=== PATIENT | female | born 1960 | race Caucasian/White ===

== ENCOUNTER 2016-07-11 10:42 | Day surgery (SDC) | payer OTHER ==
[~2016-07-11] VITALS: Ht 165.1 cm; Wt 108.3 kg
[~2016-07-11 10:42] MED LIST: ALBU8.5H3 INH; ASPI-664 PO; ATOR80TA18 PO; CARV6.2579 PO; FAMO20TA18 PO; HYDR-3498 PO; IBUP-1542 PO; INSU100C SC; ISOS30TA5 PO; LANS30CA47 PO; LANT3I SC; MECL-77 PO; NIFE30TA60 PO; NIT4 SL; PANT40TA3 PO; SITA100T8 PO; TRAM50TA2 PO
[2016-07-11 12:14] VITALS: Ht 165.1 cm; Wt 108.3 kg
[2016-07-11] MEDS ORDERED: METFORMIN (12:30)
[2016-07-11] MEDS ORDERED: ZOFRAN (12:30)
[2016-07-11] MEDS ORDERED: LASIX (12:30)
[2016-07-11] MEDS ORDERED: VITAMIN D (12:30)
[2016-07-11] MEDS ORDERED: PROPOFOL 20 ML ONE (13:50)
[2016-07-11] MEDS ORDERED: MIDAZOLAM 1 MG/ML 2 ML INJ ONE (13:50)
[2016-07-11 13:56] VITALS: BP 144/73; PULSE 86; RESP 16
[2016-07-11 14:35] VITALS: BP 179/91; PULSE 82; RESP 19
--- NOTE | 2016-07-11 18:14 | GILP ---
DATE OF PROCEDURE: NAME OF PROCEDURES 1. Esophagogastroduodenoscopy and biopsy. 2. Colonoscopy. SURGEON: Nicolas Perez MD PREOPERATIVE DIAGNOSES 1. Abdominal pain. 2. Change in bowel habits. POSTOPERATIVE DIAGNOSES 1. Esophageal nodule and biopsies were taken for histopathology. 2. Gastritis with erosions. 3. Gastric mucosal biopsies were taken for Helicobacter pylori test. 4. Colonoscopy all the way to the cecum. 5. Poor prep making the exam very suboptimal. 6. Internal hemorrhoids. INDICATION FOR THE PROCEDURE: Ms. Leni Ochoa is a 55-year-old female patient who had upper abdom inal pain and change in bowel habits. The patient was scheduled for endoscopic examination and colo noscopy for further evaluation. The procedures and possible complications were well-explained to the patient. The patient understoo d and consented to the procedures. DESCRIPTION OF PROCEDURES: Under the influence of anesthesia, the gastroscope was carefully introdu jasper into the esophagus, and under direct vision, it was advanced through the stomach, into the pylor us, the duodenal bulb and descending duodenum. Findings: Esophagus: The patient had a nodule in the esophagus at the lower end and biopsies were taken for h istopathology. Stomach: The patient had gastritis with erosions. Gastric mucosal biopsies were taken for H. pylor i test. Duodenum: Normal. The colonoscope was carefully introduced in the rectum, under direct vision, it was advanced all the way to the cecum. Findings: The patient had poor prep making the exam very suboptimal. The patient was noted to have internal hemorrhoids. She tolerated the procedures very well and there was no complication from the procedures. At the en d of the procedures, she was awake with stable vital signs, and she was discharged home in the care of her family. IMPRESSION 1. Esophageal nodule at the lower end and biopsies were taken for histopathology. 2. Gastritis with erosions. 3. Gastric mucosal biopsies were taken for Helicobacter pylori test. 4. Colonoscopy all the way to the cecum. 5. Poor prep making the exam very suboptimal. 6. Internal hemorrhoids. PLAN 1. Omeprazole 40 mg p.o. q.a.m. 2. Linzess 145 mcg p.o. daily a.m. before breakfast. 3. Await histopathology reports. 4. The patient will need a repeat colonoscopy with better preparation. Dictated By: NICOLAS JUNIOR/CONSUELO Conf#: [id number] [facility]#: [id number]
--- NOTE | 2016-07-12 20:58 | RADRPT ---
Vent Rate: 85 bpm RR Interval: 0 msec PA Interval: 186 msec QRS Duration: 74 msec QT Interval: 388 msec QTC Interval: 461 msec P-R-T [place]: 34 - 29 - 64 degrees Normal sinus rhythm Normal ECG Electronically Signed By: Lizandro Spencer [id number]
== END 2016-07-11 16:39 | disposition home or self-care (01) ==
LOC: GIL 10:42
PROVIDERS: ATTEND Internal Medicine Gastroenterology
DX: R19.4 Change in bowel habit (principal); K21.0 Gastro-esophageal reflux disease with esophagitis; K29.60 Other gastritis without bleeding; K64.8 Other hemorrhoids; I25.10 Atherosclerotic heart disease of native coronary artery without angina pectoris; I10 Essential (primary) hypertension; E11.9 Type 2 diabetes mellitus without complications; E66.9 Obesity, unspecified; Z68.39 Body mass index [BMI] 39.0-39.9, adult
CPT/HCPCS: 43239; 45378; 82962; 87081; 88305; 93005; J2250; Z7610

== ENCOUNTER 2017-02-11 10:54 | Emergency (ER) | payer OTHER ==
[~2017-02-11] VITALS: Ht 165.1 cm; Wt 104.2 kg
[~2017-02-11 10:54] MED LIST changes: -ALBU8.5H3 INH; +AMLO5TAB4 PO; +ASPI325T32 PO; +ATOR80TA75 PO; +BENA20TA65 PO; +BYET5PEN SQ; +CARV6.25 PO; +CHLO25TA13 PO; +CLOP75TA27 PO; +ERGO500014 PO; -FAMO20TA18 PO; +GABA300C PO; -IBUP-1542 PO; -LANS30CA47 PO; +LASIX; +LIDO700A6 TD; -MECL-77 PO; +METF1000 PO; +METFORMIN; -NIT4 SL; +NITR0.4T32 SL; +NOVO3I SC; +RANO500T2 PO; +ROPI0.25 PO; +SERT50TA PO; -TRAM50TA2 PO; +TRIA15CR55 TOP; +VITAMIN D; +ZOFRAN
[2017-02-11 10:57] VITALS: Ht 165.1 cm; Wt 104.2 kg
--- NOTE | 2017-02-11 12:37 | ERD ---
ER Documentation Chief Complaint Chief Complaint right facial numbness and headache x 2 days, sent by for ct HPI The patient is a 56-year-old female, presenting to the ER because of right facial numbness intermittently for the last 2 days, associated with minimal headache she has similar symptoms previously. She denies fever, chills, blurred vision, dysarthria, dysphonia, neck pain, chest pain, dyspnea. She was seen by Dr. Hutchison who sent her to radiology for brain CT. however she came to the ER. She denies abdominal pain, vomiting, dysuria, diarrhea. She does not smoke nor drink Past Medical history: Hypertension, dyslipidemia, diabetes mellitus Past surgical history: C Section, cholecystectomy, cardiac cath on January 26, 2014 that showed nonobstructive CAD ROS All systems reviewed and are negative except as per history of present illness. Medications Home Meds Active Scripts Pantoprazole* (Protonix*) 40 Mg Tablet.dr, 40 MG PO DAILY, #20 TAB Prov:MARIEL POSEY MD 10/16/15 Amlodipine Besylate* (Norvasc*) 5 Mg Tab, 5 MG PO DAILY for 30 Days Prov:SALOME VALENCIA NP 01/27/14 Nitroglycerin* (Nitroglycerin* SL) 0.4 Mg Tab.subl, 0.4 MG SL Q5MIN Y for CHEST PAIN, #30 BOTTLE Prov:SALOME VALENCIA NP 01/27/14 Aspirin* (Aspirin* EC) 325 Mg Tab, 325 MG PO DAILY for 30 Days, TAB Prov:SALOME VALENCIA NP 01/27/14 Insulin Aspart* (Novolog Insulin Pen*) 100 Unit/Ml Soln, 20 UNIT SC WITH MEALS for 30 Days Prov:SALOME VALENCIA NP 01/27/14 Insulin Glargine* (Lantus*) 100 Unit/Ml Soln, 50 UNIT SC QAM for 30 Days Prov:SALOME VALENCIA NP 01/27/14 Benazepril Hcl* (Lotensin*) 20 Mg Tab, 20 MG PO DAILY for 30 Days Prov:SALOME VALENCIA NP 01/27/14 Carvedilol* (Coreg*) 6.25 Mg Tab, 6.25 MG PO BID for 30 Days Prov:SALOME VALENCIA NP 01/27/14 Aspirin* (Aspirin* EC) 81 Mg Tablet.dr, 81 MG PO DAILY, #30 TAB Prov:ERIN SANCHEZ MD 01/20/14 Reported Medications [Vitamin D] No Conflict Check 07/11/16 [Lasix] No Conflict Check 07/11/16 [Zofran] No Conflict Check 07/11/16 [Metformin] No Conflict Check 07/11/16 Nifedipine* (Nifedipine ER*) 30 Mg Tablet.sa, 30 MG PO BID, TAB.SA 07/31/14 Sitagliptin* (Januvia*) 100 Mg Tablet, 100 MG PO DAILY, TAB 07/31/14 Isosorbide Mononitrate* (Isosorbide Mononitrate*) 30 Mg Tab.er.24h, 30 MG PO DAILY, TAB 07/31/14 Insulin Glargine* (Lantus*) 100 Unit/Ml Soln, 60 UNIT SC QHS, EA 07/31/14 Insulin Lispro (Humalog) 100 U/Ml Cartridge, 0 SC SLIDING SCALE AC, EA 07/31/14 Carvedilol* (Carvedilol*) 6.25 Mg Tablet, 6.25 MG PO BID, TAB 07/31/14 Ergocalciferol* (Drisdol* (Vitamin D2)) 50,000 Unit Capsule, 27421 UNIT PO Q MONTH, CAP 01/25/14 Atorvastatin* (Atorvastatin*) 80 Mg Tablet, 80 MG PO HS, TAB 01/25/14 Chlorthalidone* (Chlorthalidone*) 25 Mg Tablet, 12.5 MG PO QAM, TAB 01/25/14 Clopidogrel Bisulfate (Clopidogrel) 75 Mg Tablet, 75 MG PO DAILY, TAB 01/25/14 Gabapentin* (Neurontin*) 300 Mg Capsule, 300 MG PO TID, CAP 01/25/14 Metformin Hcl* (Metformin Hcl*) 1,000 Mg Tablet, 1000 MG PO BID, TAB 01/25/14 Lidocaine 5%* (Lidoderm 5%*) 5% - Patch Adh..patch, 1 PATCH TD DAILY, PATCH 01/25/14 Pantoprazole* (Protonix*) 40 Mg Tablet.dr, 40 MG PO QAM, TAB 01/25/14 Ranolazine* (Ranexa*) 500 Mg Tab.sr.12h, 500 MG PO Q12, TAB 01/25/14 Hydrocodone Bit-Acetaminophen* (Carmel*) 5-325 Mg Tab, 1 TAB PO TID Y for PAIN, TAB 01/25/14 Sertraline Hcl* (Zoloft*) 50 Mg Tablet, 50 MG PO DAILY, TAB 01/25/14 Ropinirole Hcl* (Ropinirole Hcl*) 0.25 Mg Tablet, 0.25 MG PO HS, TAB 01/25/14 Triamcinolone Acetonide* (Kenalog*) 0.1%-15GM Cr, 1 APPLIC TOP BID, EA 01/25/14 Exenatide* (Byetta*) 5 Mcg/0.02 Ml Soln, 5 MCG SQ BID, SYR 01/25/14 Atorvastatin (Lipitor) 80 Mg Tablet, 80 MG PO DAILY 10/30/10 Allergies Allergies: Coded Allergies: morphine (Verified Allergy, Mild, RASHES, 10/16/15) PMhx/Soc History of Surgery: Yes (c section, damian, hernia REPAIR) Anesthesia Reaction: No Hx Neurological Disorder: No Hx Respiratory Disorders: No Hx Cardiac Disorders: Yes (htn, cholesterol) Hx Psychiatric Problems: No Hx Miscellaneous Medical Probl: Yes (diabetes) Hx Alcohol Use: No Hx Substance Use: No Hx Tobacco Use: No Smoking Status: Never smoker Physical Exam Vitals Vital Signs Date Time Temp Pulse Resp B/P Pulse Ox O2 Delivery O2 Flow Rate FiO2 02/11/17 10:57 98.0 93 18 138/67 97 Physical Exam Const: No acute distress. Head: Atraumatic. Eyes: Normal Conjunctiva. ENT: Normal External Ears, Nose and Mouth. Neck: Full range of motion. No meningismus. Resp: Clear to auscultation bilaterally. Cardio: Regular rate and rhythm. Abd: Soft, non distended, normal bowel sounds, non tender. Skin: No petechiae or rashes. Back: No midline or flank tenderness. Ext: No cyanosis, or edema. Neur: Awake and alert. No focal deficit. Normal sensation of bilateral face Psych: Normal Mood and Affect. Results 24 hrs Laboratory Tests Test 02/11/17 12:47 Bedside Glucose 179mg/dL [facility]/[place] [id number] Radiology Main Line: [phone] DIAGNOSTIC IMAGING REPORT Patient: AARON BEACH : 1960 Age: 56 Sex: F [id number] DOS: 02/11/17 1242 Ordering MD: MARIEL POSEY MD Location: E/R Room/Bed: PROCEDURE: CT Head without. CLINICAL INDICATION: Right facial numbness. TECHNIQUE: The study was performed utilizing a multi-slice, multidetector CT scanner. Direct spiral 1 mm axial sections were obtained through the head without the use of intravenous contrast material. 1 or more of the following dose reduction techniques were utilized: Automated exposure control, adjustment of the mA and/or kV according to patient's size, iterative reconstruction technique. Coronal and sagittal reformations were obtained. The images were reviewed on a PACS workstation. DICOM images are available. RADIATION DOSE: CTDIvol: 44.6 mGy DLP: 630.2 mGy-cm COMPARISON: No prior studies are available for comparison. FINDINGS: There is no intracranial hemorrhage, extra-axial fluid collection, mass lesion, midline shift or hydrocephalus. The ventricles, sulci and cisterns are within normal limits. The white matter is unremarkable. The garcia-white matter differentiation is preserved. The basal cisterns are patent. There is mild atherosclerotic calcification of the parasellar internal carotid arteries. The midline structures are intact. The orbits, calvarium and extracranial soft tissues are normal in appearance. The visualized paranasal sinuses, mastoid air cells and middle ear cavities are normally aerated. IMPRESSION: 1. No acute intracranial abnormality. No intracranial hemorrhage, extra-axial fluid collection, mass lesion or hydrocephalous. RPTAT: HGAS .Bryson Healy MD, Date Time Electronically viewed and signed by .Bryson Healy MD, on 02/11/2017 13: 01 .S/ CC: MARIEL POSEY MD MEDICAL MAKING DECISION: The patient is a 56-year-old female, presenting with acute right facial numbness of unclear etiology, is stable for outpatient follow -up X The differential diagnoses considered include but are not limited to anxiety, TIA, Batista palsy, subarachnoid hemorrhage, occult trauma, CVA, meningitis, encephalitis, hypertension, tension, migraine, cluster, narcotic withdrawal, cervical spine disease. Departure Diagnosis: Primary Impression: Right facial numbness Condition: Good Comments I discussed the findings with the patient. I advised the patient to follow-up with the primary physician in about 1-2 days, sooner if needed and return if any concern. Disclaimer: Inadvertent spelling and grammatical errors are likely due to EHR/ dictation software use and do not reflect on the overall quality of patient care. Also, please note that the electronic time recorded on this note does not necessarily reflect the actual time of the patient encounter. MARIEL POSEY MD Feb 11, 2017 12:37
--- NOTE | 2017-02-11 13:01 | RADRPT ---
PROCEDURE: CT Head without. CLINICAL INDICATION: Right facial numbness. TECHNIQUE: The study was performed utilizing a multi-slice, multidetector CT scanner. Direct spira l 1 mm axial sections were obtained through the head without the use of intravenous contrast materia l. 1 or more of the following dose reduction techniques were utilized: Automated exposure control, adjustment of the mA and/or kV according to patient's size, iterative reconstruction technique. Co óscar and sagittal reformations were obtained. The images were reviewed on a PACS workstation. DICOM images are available. RADIATION DOSE: CTDIvol: 44.6 mGyDLP: 630.2 mGy-cm COMPARISON: No prior studies are available for comparison. FINDINGS: There is no intracranial hemorrhage, extra-axial fluid collection, mass lesion, midline shift or hyd rocephalus. The ventricles, sulci and cisterns are within normal limits. The white matter is unrem arkable. The garcia-white matter differentiation is preserved. The basal cisterns are patent. There is mild atherosclerotic calcification of the parasellar internal carotid arteries. The midline stru ctures are intact. The orbits, calvarium and extracranial soft tissues are normal in appearance. Th e visualized paranasal sinuses, mastoid air cells and middle ear cavities are normally aerated. IMPRESSION: 1. No acute intracranial abnormality. No intracranial hemorrhage, extra-axial fluid collection, ma ss lesion or hydrocephalous. RPTAT: HGAS .Bryson Healy MD, Date Time Electronically viewed and signed by .Bryson Healy MD, on 02/11/2017 13:01 .S/
== END 2017-02-11 13:27 | disposition home or self-care (01) ==
LOC: E/R 10:54 → MERGE 10:54 → E/R 13:27
DX: R20.0 Anesthesia of skin (principal); I10 Essential (primary) hypertension; E11.9 Type 2 diabetes mellitus without complications; Z79.4 Long term (current) use of insulin; Z79.82 Long term (current) use of aspirin; Z79.84 Long term (current) use of oral hypoglycemic drugs
CPT/HCPCS: 70450; 82962; Z7502

== ENCOUNTER 2017-10-20 10:27 | Emergency (ER) | END 2017-10-20 11:20 | disposition left against medical advice (07) ==

== ENCOUNTER 2017-10-27 08:53 | Emergency (ER) | END 2017-10-27 10:07 | disposition home or self-care (01) ==

== ENCOUNTER → 2018-01-07 | Outpatient (CLI) | END | disposition home or self-care (01) ==

== ENCOUNTER → 2018-05-18 | Outpatient (CLI) | payer OTHER ==
[~2018-05-18] MED LIST changes: -ASPI-664 PO; +ASPI-817 PO; +ATOR-2 PO; -ATOR80TA75 PO; -CHLO25TA13 PO; +CHLO25TA2 PO; -ISOS30TA5 PO; +ISOS30TA67 PO; +MELO15TA30 PO; -METF1000 PO; +METF100010 PO; +NIFE30TA23 PO; -NIFE30TA60 PO; -ROPI0.25 PO; +ROPI0.253 PO; +SITA100T11 PO; -SITA100T8 PO
== END | disposition home or self-care (01) ==
LOC: LAB 09:25
PROVIDERS: ATTEND Internal Medicine
DX: R94.39 Abnormal result of other cardiovascular function study (principal)
CPT/HCPCS: 80048

== ENCOUNTER → 2018-05-21 | Outpatient (CLI) | payer OTHER ==
[~2018-05-21] MED LIST changes: +IOHEXOL 100 ML ONE; +METOPROLOL 100 MG TAB ONE; +METOPROLOL 5 MG INJ ONE; +NITROGLYCERIN AEROSOL (4.9 GM) ONE; +SOD CHLORIDE 0.9% 100 ML ONE
== END | disposition home or self-care (01) ==
LOC: C/S 09:12
PROVIDERS: ATTEND Internal Medicine
DX: R94.39 Abnormal result of other cardiovascular function study (principal)
CPT/HCPCS: 75571; 75574; Q9967; Z7610

== ENCOUNTER 2018-09-13 10:18 | Emergency (ER) | payer OTHER ==
[~2018-09-13] VITALS: Ht 165.1 cm; Wt 107.5 kg
[~2018-09-13 10:18] MED LIST changes: -IOHEXOL 100 ML ONE; -METOPROLOL 100 MG TAB ONE; -METOPROLOL 5 MG INJ ONE; -NITROGLYCERIN AEROSOL (4.9 GM) ONE; -SOD CHLORIDE 0.9% 100 ML ONE
[2018-09-13 10:21] VITALS: Ht 165.1 cm; Wt 107.5 kg
--- NOTE | 2018-09-13 11:09 | ERD ---
ER Documentation Chief Complaint Chief Complaint r. knee pain/swelling x 2 weeks HX r.knee surgery 05/2018 HPI 49-year-old female presents with complaint of right knee pain and swelling for the past 2 weeks. States that she got full knee replacement in May 25 and then after that on June 08 had to go back to the ER for a knee manipulation as the knee was not healing properly. Denies any fevers, chills, redness, weakness . States that there is some numbness of the leg. She is ambulatory. States that the pain is currently 8 out of 10. Denies any treatments. ROS All systems reviewed and are negative except as per history of present illness. Medications Home Meds Active Scripts Hydrocodone/Acetaminophen (Loving 5-325 Tablet) 1 Each Tablet, 1-2 TAB PO Q6H PRN for PAIN, #15 TAB Prov:ARLEN CANNON 09/13/18 Ibuprofen* (Motrin*) 600 Mg Tab, 600 MG PO Q6, #30 TAB Prov:ARLEN CANNON 09/13/18 Meloxicam* (Mobic*) 15 Mg Tablet, 15 MG PO DAILY, #30 TAB Prov:SERGIO LAM PA-C 10/27/17 Pantoprazole* (Protonix*) 40 Mg Tablet.dr, 40 MG PO DAILY, #20 TAB Prov:MARIEL POSEY MD 10/16/15 Amlodipine Besylate* (Norvasc*) 5 Mg Tab, 5 MG PO DAILY for 30 Days Prov:SALOME VALENCIA NP 01/27/14 Nitroglycerin* (Nitroglycerin* SL) 0.4 Mg Tab.subl, 0.4 MG SL Q5MIN PRN for CHEST PAIN, #30 BOTTLE Prov:SALOME VALENCIA NP 01/27/14 Aspirin* (Aspirin* EC) 325 Mg Tab, 325 MG PO DAILY for 30 Days, TAB Prov:SALOME VALENCIA NP 01/27/14 Insulin Aspart* (Novolog Insulin Pen*) 100 Unit/Ml Soln, 20 UNIT SC WITH MEALS for 30 Days Prov:SALOME VALENCIA NP 01/27/14 Insulin Glargine* (Lantus*) 100 Unit/Ml Soln, 50 UNIT SC QAM for 30 Days Prov:SALOME VALENCIA NP 01/27/14 Benazepril Hcl* (Lotensin*) 20 Mg Tab, 20 MG PO DAILY for 30 Days Prov:SALOME VALENCIA [employer] SALES [employer]ANT 01/27/14 Carvedilol* (Coreg*) 6.25 Mg Tab, 6.25 MG PO BID for 30 Days Prov:SALOME VALENCIA NP 01/27/14 Aspirin* (Aspirin* EC) 81 Mg Tablet.dr, 81 MG PO DAILY, #30 TAB Prov:ERIN SANCHEZ MD 01/20/14 Reported Medications [Vitamin D] No Conflict Check 07/11/16 [Lasix] No Conflict Check 07/11/16 [Zofran] No Conflict Check 07/11/16 [Metformin] No Conflict Check 07/11/16 Nifedipine* (Nifedipine ER*) 30 Mg Tablet.sa, 30 MG PO BID, TAB.SA 07/31/14 Sitagliptin* (Januvia*) 100 Mg Tablet, 100 MG PO DAILY, TAB 07/31/14 Isosorbide Mononitrate* (Isosorbide Mononitrate*) 30 Mg Tab.er.24h, 30 MG PO DAILY, TAB 07/31/14 Insulin Glargine* (Lantus*) 100 Unit/Ml Soln, 60 UNIT SC QHS, EA 07/31/14 Insulin Lispro (Humalog) 100 U/Ml Cartridge, 0 SC SLIDING SCALE AC, EA 07/31/14 Carvedilol* (Carvedilol*) 6.25 Mg Tablet, 6.25 MG PO BID, TAB 07/31/14 Ergocalciferol* (Drisdol* (Vitamin D2)) 50,000 Unit Capsule, 25937 UNIT PO Q MONTH, CAP 01/25/14 Atorvastatin* (Atorvastatin*) 80 Mg Tablet, 80 MG PO HS, TAB 01/25/14 Chlorthalidone* (Chlorthalidone*) 25 Mg Tablet, 12.5 MG PO QAM, TAB 01/25/14 Clopidogrel Bisulfate (Clopidogrel) 75 Mg Tablet, 75 MG PO DAILY, TAB 01/25/14 Gabapentin* (Neurontin*) 300 Mg Capsule, 300 MG PO TID, CAP 01/25/14 Metformin Hcl* (Metformin Hcl*) 1,000 Mg Tablet, 1000 MG PO BID, TAB 01/25/14 Lidocaine 5%* (Lidoderm 5%*) 5% - Patch Adh..patch, 1 PATCH TD DAILY, PATCH 01/25/14 Pantoprazole* (Protonix*) 40 Mg Tablet.dr, 40 MG PO QAM, TAB 01/25/14 Ranolazine* (Ranexa*) 500 Mg Tab.sr.12h, 500 MG PO Q12, TAB 01/25/14 Hydrocodone Bit-Acetaminophen* (Loving*) 5-325 Mg Tab, 1 TAB PO TID PRN for PAIN, TAB 01/25/14 Sertraline Hcl* (Zoloft*) 50 Mg Tablet, 50 MG PO DAILY, TAB 01/25/14 Ropinirole Hcl* (Ropinirole Hcl*) 0.25 Mg Tablet, 0.25 MG PO HS, TAB 01/25/14 Triamcinolone Acetonide* (Kenalog*) 0.1%-15GM Cr, 1 APPLIC TOP BID, EA 01/25/14 Exenatide* (Byetta*) 5 Mcg/0.02 Ml Soln, 5 MCG SQ BID, SYR 01/25/14 Atorvastatin (Lipitor) 80 Mg Tablet, 80 MG PO DAILY 10/30/10 Allergies Allergies: Coded Allergies: morphine (Verified Allergy, Mild, RASHES, 09/13/18) PMhx/Soc History of Surgery: Yes (c section, damian, hernia REPAIR) Anesthesia Reaction: No Hx Neurological Disorder: No Hx Respiratory Disorders: No Hx Cardiac Disorders: Yes (htn, cholesterol) Hx Psychiatric Problems: No Hx Miscellaneous Medical Probl: Yes (diabetes) Hx Alcohol Use: No Hx Substance Use: No Hx Tobacco Use: No FmHx Family History: No diabetes, No coronary disease, No other Physical Exam Vitals Vital Signs Date Temp Pulse Resp B/P (MAP) Pulse Ox O2 O2 Flow FiO2 Time Delivery Rate 09/13/18 98.1 78 18 196/88 98 10:21 (124) Physical Exam Const: No acute distress Head: Atraumatic Eyes: Normal Conjunctiva ENT: Normal External Ears, Nose and Mouth. Neck: Full range of motion. No meningismus. Resp: Clear to auscultation bilaterally Cardio: Regular rate and rhythm, no murmurs Abd: Soft, non tender, non distended. Normal bowel sounds Skin: No petechiae or rashes Back: No midline or flank tenderness Ext: No cyanosis, or edema Neur: Awake and alert Psych: Normal Mood and Affect Lower Extremity - bilateral: Skin: No laceration Compartments: Soft Motor: Full active range of motion hip/knee/ankle/foot Sensation: Intact to light touch FDWS/MF/LF/P surfaces. Bones: Nontender pelvis/knee/proximal tibia/ malleoli/foot Joints: Moderate edema noted over the left knee. There is no underlying bony deformity. Or laxity Pulses/Perfusion: 2+ DP, Capillary refill < 2 seconds Result Diagram: 09/13/18 1102 09/13/18 1102 Results 24 hrs Laboratory Tests Test 09/13/18 11:02 White Blood Count 5.6 10^3/ul Red Blood Count 4.16 10^6/ul Hemoglobin 11.8 g/dl Hematocrit 37.8 % Mean Corpuscular Volume 90.9 fl Mean Corpuscular Hemoglobin 28.4 pg Mean Corpuscular Hemoglobin Concent 31.2 g/dl Red Cell Distribution Width 14.5 % Platelet Count 198 10^3/UL Mean Platelet Volume 11.7 fl Immature Granulocytes % 0.700 % Neutrophils % 55.1 % Lymphocytes % 34.8 % Monocytes % 5.7 % Eosinophils % 3.2 % Basophils % 0.5 % Nucleated Red Blood Cells % 0.0 /100WBC Immature Granulocytes # 0.040 10^3/ul Neutrophils # 3.1 10^3/ul Lymphocytes # 2.0 10^3/ul Monocytes # 0.3 10^3/ul Eosinophils # 0.2 10^3/ul Basophils # 0.0 10^3/ul Nucleated Red Blood Cells # 0.0 10^3/ul Sodium Level 140 mmol/L Potassium Level 4.4 mmol/L Chloride Level 106 mmol/L Carbon Dioxide Level 28 mmol/L Anion Gap 6 Blood Urea Nitrogen 16 mg/dl Creatinine 0.70 mg/dl Est Glomerular Filtrat Rate mL/min > 60 mL/min Glucose Level 178 mg/dl Calcium Level 9.6 mg/dl Total Bilirubin 0.6 mg/dl Direct Bilirubin 0.00 mg/dl Indirect Bilirubin 0.6 mg/dl Aspartate Amino Transf (AST/SGOT) 19 IU/L Alanine Aminotransferase (ALT/SGPT) 20 IU/L Alkaline Phosphatase 81 IU/L Total Protein 7.2 g/dl Albumin 3.9 g/dl Globulin 3.30 g/dl Albumin/Globulin Ratio 1.18 Current Medications Medications Dose Sig/Jennifer Start Time Status Last (Trade) Ordered Route PRN Stop Time Admin Dose Reason Admin Sodium 1,000 ml @ Q1H STAT 09/13/18 DC 09/13/18 Chloride 1,000 mls/hr IV 11:56 12:11 09/13/18 12:55 Iohexol 150 ml STK-MED 09/13/18 DC (Omnipaque ONCE .ROUTE 12:14 300mg/ ml) 09/13/18 12:15 Sodium 100 ml @ ud STK-MED 09/13/18 DC Chloride ONCE .ROUTE 12:14 09/13/18 12:15 IV Flush 10 ml STK-MED 09/13/18 DC (NS 10 ml) ONCE .ROUTE 12:14 09/13/18 12:15 1 tab ONCE ONCE 09/13/18 09/13/18 Acetaminophen PO 15:30 15:25 / 09/13/18 15:31 Hydrocodone Bitart (Loving (5/325)) Ibuprofen 600 mg ONCE ONCE 09/13/18 09/13/18 (Motrin) PO 15:30 15:25 09/13/18 15:31 Procedures/[place] [address] Radiology Main Line: [phone] DIAGNOSTIC IMAGING REPORT Patient: AARON BEACH : 1960 Age: 57 Sex: F MR #: [id number] DOS: 09/13/18 1038 Ordering MD: ARLEN CANNON Location: FTE Room/Bed: PROCEDURE: CT right knee without contrast. CLINICAL INDICATION: Pain and swelling post knee replacement TECHNIQUE: CT scan of the right knee was performed on a multi -slice scanner. No IV contrast was administered. Coronal and sagittal reformatted images were obtained from the axial source images. The total exam DLP equals 222 mGy-cm. The CDTI volume was 6 mGy. Images were reviewed on a high-resolution PACS workstation. DICOM images are available. One or more of the following dose reduction techniques were used: Automated exposure control Adjustment of the mA and/or kV according to patient size. Use of iterative reconstruction technique. COMPARISON: 10/27/2017 FINDINGS: There is a right total knee prosthesis with streak artifact slightly limiting evaluation of the bones and soft tissues around the knee. There is a small to moderate joint effusion with synovitis/synovial thickening. No popliteal cyst is visualized. The right total knee prosthesis is intact without evidence of a periprosthetic fracture, loosening, or evidence of osteolysis. The joint space is maintained between the femoral and tibial components. There is no acute fracture or bony destructive changes. There is mild thickening and scarring of the patellar tendon which may be from postsurgical changes with mild adjacent soft tissue stranding. Quadriceps tendon is unremarkable. There is soft tissue stranding within Hoffa's fat pad. There is slight decreased bulk of the quadriceps muscles around the knee more prominent involving the vastus lateralis. The remaining muscles around the knee are otherwise unremarkable. RPTAT: QQ IMPRESSION: 1. Intact right total knee prosthesis without evidence of hardware failure. 2. Small to moderate joint effusion with synovitis/synovial thickening. 3. No acute fracture or bony destructive changes. .Lyndsey Hammonds MD, MD Date Time Electronically viewed and signed by .Lyndsey Hammonds MD, MD on 09/13/2018 14:32 .T/ CC: ARLEN CANNON [phone] MDM: CT of the knee was performed due to the patient's history of recent knee replacement as well as complaint of pain and swelling to rule out emergent conditions. CT only showed moderate effusion with synovitis which clinically correlates with patient's discomfort. I discussed the case with my SP Dr Amin and she said patient is fit for discharge with ortho follow up, no antibiotics needed. Patient will be treated with ibuprofen and told to follow-up with their orthopedic surgeon regarding the post surgery discomfort. I have low suspicion for neurovascular compromise, compartment syndrome, fracture, osteomyelitis, septic joint, DVT, or other emergent condition. At this time, patient is stable for discharge and outpatient management. I have instructed the patient to follow-up with his/her primary care physician in 1-2 days. I have discussed with the patient the possibility of needing to see a specialist for further workup and imaging studies if symptoms persist. I have instructed the patient to promptly return to the ER for any new or worsening symptoms including but not limited to increased pain, fever, nausea, vomiting, weakness or LOC. The patient and/or family expressed understanding of and agreement with this plan. All questions were answered. Home care instructions were provided. Communication with patient both during the exam and instructions for discharge were performed with using a college archivist . Patient gave verbal confirmation to the practitioner, through the college archivist, that they understood everythign that was being said to them. DISCLAIMER: Inadvertent spelling and grammatical errors are likely due to EHR/dictation software use and do not reflect on the overall quality of patient care. Also, please note that the electronic time recorded on this note does not necessarily reflect the actual time of the patient encounter. Departure Diagnosis: Primary Impression: Knee pain Chronicity: acute Laterality: right Qualified Codes: M25.561 - Pain in right knee Condition: Stable DIEGOARLEN ADAN Sep 13, 2018 11:09
[2018-09-13] MEDS ORDERED: SOD CHLORIDE 0.9% 1,000 ML IV STA (11:56)
[2018-09-13] MEDS ORDERED: SOD CHLORIDE 0.9% 100 ML ONE (12:14)
[2018-09-13] MEDS ORDERED: IOHEXOL 300MG/ML 150 ML BTL ONE (12:14)
[2018-09-13] MEDS ORDERED: IBUP-1542 PO (14:46)
[2018-09-13] MEDS ORDERED: HYDR-4011 PO (15:13)
[2018-09-13] MEDS ORDERED: IBUPROFEN 600 MG TAB PO ONE (15:30)
[2018-09-13] MEDS ORDERED: HYDROCODONE/APAP (5/325) TAB PO ONE (15:30)
[2018-09-13 15:32] VITALS: BP 170/74; PULSE 71; RESP 18
== END 2018-09-13 15:36 | disposition home or self-care (01) ==
LOC: FTE 10:18
DX: M25.561 Pain in right knee (principal); E11.9 Type 2 diabetes mellitus without complications; I10 Essential (primary) hypertension; Z79.4 Long term (current) use of insulin; Z79.82 Long term (current) use of aspirin
CPT/HCPCS: 36415; 73700; 80053; 85025; 96360; 96361; J7030; Q9967; Z7502; Z7610

== ENCOUNTER 2019-01-22 11:47 | Inpatient (IN) | payer OTHER ==
[~2019-01-22] VITALS: Ht 165.1 cm; Wt 109.0 kg
[~2019-01-22 11:47] MED LIST changes: +APIX5TAB PO; +CARV25TA79 PO; +ERGO500013 PO; +EZET10TA19 PO; +FURO-110 PO; +HYDR-3980 PO; +HYDR-4011 PO; +IBUP-1542 PO; +INSU100I33 SC; +ISOS60TA PO; +METF500T24 PO; +NIFE60TA18 PO; +RANO10002 PO
[2019-01-22] MEDS ORDERED: PANTOPRAZOLE 40 MG INJ IV ONE (16:30)
[2019-01-22] MEDS ORDERED: SOD CHLORIDE 0.9% 1,000 ML IV SCH (16:38)
[2019-01-22] MEDS ORDERED: ACETAMINOPHEN 325 MG TAB PO PRN (17:00)
[2019-01-22] MEDS ORDERED: NITROGLYCERIN (SL) 0.4 MG TAB SL PRN (17:00)
[2019-01-22] MEDS ORDERED: morphine 2 MG INJ IV PRN (17:00)
[2019-01-22] MEDS ORDERED: PANTOPRAZOLE IV 80 MG in SOD CHLORIDE 0.9% 100 ML IVPB ONE (17:00)
[2019-01-22] MEDS ORDERED: HYDROCODONE/APAP (5/325) TAB PO PRN (17:00)
[2019-01-22] MEDS ORDERED: NACL 0.9% 3 ML SYG IV SCH (17:00)
[2019-01-22] MEDS ORDERED: ONDANSETRON 4 MG INJ IV PRN (17:00)
[2019-01-22] MEDS ORDERED: LIDOCAINE/MYLANTA 40 ML BTL PO ONE (17:30)
[2019-01-22] MEDS: PANTOPRAZOLE IV 80 MG in SOD CHLORIDE 0.9% 100 ML IV SCH (17:43)
[2019-01-22] MEDS: SUCRALFATE (100 MG/ML) 10ML CUP PO SCH ×2 (17:44→22:29)
[2019-01-22] MEDS: INSULIN ASPART [NOVOLOG] 3 ML PEN SC SCH ×2 (18:00→22:23)
[2019-01-22] MEDS: RANOLAZINE (SR) 500 MG TAB PO SCH (21:00)
[2019-01-22] MEDS ORDERED: INSULIN GLARGINE [LANTus] (100 UNITS/ML) SYG SC SCH (21:00)
[2019-01-22] MEDS: INSULIN GLARGINE [LANTus] (100 UNITS/ML) SYG SC SCH (22:24)
[2019-01-22] MEDS: ISOSORBIDE MONONITRATE(SR)60 MG TAB PO SCH (22:27)
[2019-01-22] MEDS: ATORVASTATIN 80 MG TAB PO SCH (22:27)
[2019-01-22] MEDS: EZETIMIBE 10 MG TAB PO SCH (22:28)
[2019-01-22] MEDS: FUROSEMIDE 20 MG TAB PO SCH (22:28)
[2019-01-22] MEDS ORDERED: LOPERAMIDE 2 MG CAP PO ONE (23:00)
[2019-01-22] MEDS ORDERED: LOPERAMIDE 2 MG CAP PO SCH (23:00)
[2019-01-22 23:45] VITALS: BP 132/62; PULSE 77; RESP 17
[2019-01-23 00:01] VITALS: Ht 165.1 cm; Wt 109.0 kg
[2019-01-23 02:00] VITALS: BP 111/53; PULSE 81; RESP 17
[2019-01-23] MEDS: ACCU-CHEK XX SCH (02:21)
[2019-01-23] MEDS: PANTOPRAZOLE IV 80 MG in SOD CHLORIDE 0.9% 100 ML IV SCH ×3 (05:59→17:00)
[2019-01-23] MEDS: INSULIN ASPART [NOVOLOG] 3 ML PEN SC SCH ×4 (09:01→20:18)
[2019-01-23] MEDS: SUCRALFATE (100 MG/ML) 10ML CUP PO SCH ×4 (09:01→20:11)
[2019-01-23] MEDS: RANOLAZINE (SR) 500 MG TAB PO SCH ×2 (09:02→20:11)
[2019-01-23] MEDS: ISOSORBIDE MONONITRATE(SR)60 MG TAB PO SCH ×2 (09:05→20:10)
[2019-01-23] MEDS: NIFEdipine (XL) 60 MG TAB PO SCH (09:06)
[2019-01-23] MEDS: FUROSEMIDE 20 MG TAB PO SCH ×2 (09:07→20:09)
[2019-01-23] MEDS: ACETAMINOPHEN 325 MG TAB PO PRN ×2 (09:09→20:32)
[2019-01-23 09:14] VITALS: BP 119/60; PULSE 77; RESP 17
[2019-01-23] MEDS ORDERED: POTASSIUM CHLORIDE (SR) 20 MEQ TAB PO STA (11:05)
[2019-01-23] MEDS ORDERED: GLUCOSE GEL 15 GRAM TUBE BUCCAL PRN (14:00)
[2019-01-23] MEDS ORDERED: DEXTROSE 50% 50 ML SYRINGE IV PRN ×2 (14:00)
[2019-01-23] MEDS ORDERED: GLUCAGON 1 MG INJ IM PRN (14:00)
[2019-01-23] MEDS ORDERED: GLUCOSE GEL 15 GRAM TUBE PO PRN ×2 (14:00)
[2019-01-23 14:38] VITALS: BP 107/55; PULSE 82; RESP 18
[2019-01-23] MEDS: ATORVASTATIN 80 MG TAB PO SCH (20:09)
[2019-01-23] MEDS: EZETIMIBE 10 MG TAB PO SCH (20:10)
[2019-01-23] MEDS: ONDANSETRON 4 MG INJ IV PRN (20:11)
[2019-01-23 20:50] VITALS: BP 125/64; PULSE 87; RESP 20
[2019-01-24] MEDS ORDERED: ONDANSETRON 4 MG TAB PO PRN
[2019-01-24] MEDS: ACCU-CHEK XX SCH (02:00)
[2019-01-24 02:47] VITALS: BP 103/54; PULSE 83; RESP 20
[2019-01-24] MEDS: INSULIN ASPART [NOVOLOG] 3 ML PEN SC SCH ×4 (08:31→20:40)
[2019-01-24 08:59] VITALS: BP 101/54; PULSE 86; RESP 18
[2019-01-24] MEDS: NIFEdipine (XL) 60 MG TAB PO SCH (09:00)
[2019-01-24] MEDS: FUROSEMIDE 20 MG TAB PO SCH ×2 (09:13→20:51)
[2019-01-24] MEDS: RANOLAZINE (SR) 500 MG TAB PO SCH ×2 (09:13→20:52)
[2019-01-24] MEDS: SUCRALFATE (100 MG/ML) 10ML CUP PO SCH ×4 (09:13→20:51)
[2019-01-24] MEDS: ISOSORBIDE MONONITRATE(SR)60 MG TAB PO SCH ×2 (09:14→20:51)
[2019-01-24] MEDS: PANTOPRAZOLE IV 80 MG in SOD CHLORIDE 0.9% 100 ML IV SCH ×2 (09:27→21:32)
[2019-01-24] MEDS ORDERED: POTASSIUM CHLORIDE (SR) 20 MEQ TAB PO STA (11:12)
[2019-01-24] MEDS ORDERED: MAGNESIUM OXIDE 400 MG TAB PO ONE (11:30)
[2019-01-24] MEDS ORDERED: MAGNESIUM SULFATE 2 GM/50 ML 50 ML IVPB ONE (11:30)
[2019-01-24] MEDS: ACETAMINOPHEN 325 MG TAB PO PRN ×2 (12:33→21:42)
[2019-01-24] MEDS ORDERED: DEXTROSE 5%-0.45% NACL 1,000 ML IV PRN (14:00)
[2019-01-24 15:17] VITALS: BP 106/55; PULSE 86; RESP 18
[2019-01-24 20:00] VITALS: BP 121/59; PULSE 86; RESP 18
[2019-01-24] MEDS: ATORVASTATIN 80 MG TAB PO SCH (20:50)
[2019-01-24] MEDS: EZETIMIBE 10 MG TAB PO SCH (20:52)
[2019-01-24] MEDS: INSULIN GLARGINE [LANTus] (100 UNITS/ML) SYG SC SCH (21:00)
[2019-01-24] MEDS ORDERED: INSULIN GLARGINE [LANTus] (100 UNITS/ML) SYG SC ONE (22:30)
[2019-01-25] VITALS (7 sets, daily range): BP systolic 107–168; BP diastolic 54–82; PULSE 72–94; RESP 16–23
[2019-01-25] MEDS: INSULIN ASPART [NOVOLOG] 3 ML PEN SC SCH ×6 (01:00→20:30)
[2019-01-25] MEDS: ACCU-CHEK XX SCH (02:00)
[2019-01-25] MEDS: PANTOPRAZOLE IV 80 MG in SOD CHLORIDE 0.9% 100 ML IV SCH ×3 (07:30→23:54)
[2019-01-25] MEDS: RANOLAZINE (SR) 500 MG TAB PO SCH ×2 (09:12→20:31)
[2019-01-25] MEDS: ISOSORBIDE MONONITRATE(SR)60 MG TAB PO SCH (09:13)
[2019-01-25] MEDS: FUROSEMIDE 20 MG TAB PO SCH ×2 (09:13→20:33)
[2019-01-25] MEDS: NIFEdipine (XL) 60 MG TAB PO SCH (09:13)
[2019-01-25] MEDS: SUCRALFATE (100 MG/ML) 10ML CUP PO SCH ×4 (09:14→20:31)
[2019-01-25] MEDS ORDERED: MAGNESIUM SULFATE 2 GM/50 ML 50 ML IVPB ONE ×2 (13:30→16:00)
[2019-01-25] MEDS ORDERED: PROPOFOL 40 ML ONE (15:21)
[2019-01-25] MEDS ORDERED: FENTAnyl 50 MCG/ML VIAL ONE (15:21)
[2019-01-25] MEDS ORDERED: LIDOCAINE 2% (SDV) 5 ML INJ ONE (15:21)
[2019-01-25] MEDS: DEXTROSE 5%-0.45% NACL 1,000 ML IV SCH (16:40)
[2019-01-25] MEDS ORDERED: PANTOPRAZOLE (EC) 40 MG TAB PO SCH (18:00)
[2019-01-25] MEDS: EZETIMIBE 10 MG TAB PO SCH (20:31)
[2019-01-25] MEDS: ATORVASTATIN 80 MG TAB PO SCH (20:31)
[2019-01-25] MEDS: INSULIN GLARGINE [LANTus] (100 UNITS/ML) SYG SC SCH (20:35)
[2019-01-25] MEDS: ACETAMINOPHEN 325 MG TAB PO PRN (23:55)
[2019-01-26] MEDS: ACCU-CHEK XX SCH (02:00)
[2019-01-26 02:51] VITALS: BP 107/55; PULSE 70; RESP 16
[2019-01-26] MEDS: DEXTROSE 5%-0.45% NACL 1,000 ML IV SCH ×3 (05:29→22:25)
[2019-01-26] MEDS: SUCRALFATE (100 MG/ML) 10ML CUP PO SCH ×4 (08:06→20:53)
[2019-01-26 08:08] VITALS: BP 117/60; PULSE 66; RESP 17
[2019-01-26] MEDS: NIFEdipine (XL) 60 MG TAB PO SCH (08:10)
[2019-01-26] MEDS: INSULIN ASPART [NOVOLOG] 3 ML PEN SC SCH ×4 (08:10→20:48)
[2019-01-26] MEDS: RANOLAZINE (SR) 500 MG TAB PO SCH ×2 (08:11→20:53)
[2019-01-26] MEDS: FUROSEMIDE 20 MG TAB PO SCH ×2 (08:11→20:54)
[2019-01-26] MEDS: ISOSORBIDE MONONITRATE(SR)60 MG TAB PO SCH (08:15)
[2019-01-26] MEDS: ONDANSETRON 4 MG INJ IV PRN (12:10)
[2019-01-26 14:00] VITALS: BP 105/55; PULSE 75; RESP 17
[2019-01-26] MEDS: PANTOPRAZOLE 40 MG INJ IV SCH (17:14)
[2019-01-26 20:00] VITALS: BP 109/59; PULSE 76; RESP 17
[2019-01-26] MEDS: ATORVASTATIN 80 MG TAB PO SCH (20:53)
[2019-01-26] MEDS: EZETIMIBE 10 MG TAB PO SCH (20:53)
[2019-01-26] MEDS: INSULIN GLARGINE [LANTus] (100 UNITS/ML) SYG SC SCH (20:56)
[2019-01-26] MEDS: ACETAMINOPHEN 325 MG TAB PO PRN (22:22)
[2019-01-27] MEDS: ACCU-CHEK XX SCH (01:32)
[2019-01-27 02:00] VITALS: BP 103/57; PULSE 67; RESP 15
[2019-01-27] MEDS: PANTOPRAZOLE 40 MG INJ IV SCH ×2 (05:09→17:35)
[2019-01-27 08:00] VITALS: BP 116/61; PULSE 82; RESP 18
[2019-01-27] MEDS: INSULIN ASPART [NOVOLOG] 3 ML PEN SC SCH ×4 (08:00→20:49)
[2019-01-27] MEDS: SUCRALFATE (100 MG/ML) 10ML CUP PO SCH ×4 (08:53→20:45)
[2019-01-27] MEDS: NIFEdipine (XL) 60 MG TAB PO SCH (08:55)
[2019-01-27] MEDS: RANOLAZINE (SR) 500 MG TAB PO SCH ×2 (08:56→20:46)
[2019-01-27] MEDS: FUROSEMIDE 20 MG TAB PO SCH ×2 (08:56→20:49)
[2019-01-27] MEDS: ISOSORBIDE MONONITRATE(SR)60 MG TAB PO SCH (08:57)
[2019-01-27] MEDS: DEXTROSE 5%-0.45% NACL 1,000 ML IV SCH (12:37)
[2019-01-27 14:00] VITALS: BP 132/64; PULSE 70; RESP 18
[2019-01-27] MEDS ORDERED: DOCOSANOL 2 GM CREAM TOP PRN (18:00)
[2019-01-27 20:00] VITALS: BP 120/57; PULSE 72; RESP 19
[2019-01-27] MEDS: EZETIMIBE 10 MG TAB PO SCH (20:46)
[2019-01-27] MEDS: ATORVASTATIN 80 MG TAB PO SCH (20:46)
[2019-01-27] MEDS: INSULIN GLARGINE [LANTus] (100 UNITS/ML) SYG SC SCH (20:52)
[2019-01-27] MEDS ORDERED: GABAPENTIN 300 MG CAP PO PRN (22:30)
[2019-01-28] MEDS: ACCU-CHEK XX SCH (01:03)
[2019-01-28 02:00] VITALS: BP 125/60; PULSE 74; RESP 18
[2019-01-28] MEDS: PANTOPRAZOLE 40 MG INJ IV SCH (05:25)
[2019-01-28 08:00] VITALS: BP 134/58; PULSE 76; RESP 18
[2019-01-28] MEDS: INSULIN ASPART [NOVOLOG] 3 ML PEN SC SCH ×2 (08:00→11:59)
[2019-01-28] MEDS: RANOLAZINE (SR) 500 MG TAB PO SCH (08:30)
[2019-01-28] MEDS: FUROSEMIDE 20 MG TAB PO SCH (08:32)
[2019-01-28] MEDS: ISOSORBIDE MONONITRATE(SR)60 MG TAB PO SCH (08:33)
[2019-01-28] MEDS: NIFEdipine (XL) 60 MG TAB PO SCH (08:33)
[2019-01-28] MEDS: SUCRALFATE (100 MG/ML) 10ML CUP PO SCH ×2 (08:33→12:09)
[2019-01-28 14:00] VITALS: BP 143/78; PULSE 96; RESP 20
== END 2019-01-28 16:00 | disposition home or self-care (01) | DRG 370 ==
LOC: E/R 11:47 → 5EC 16:34
PROVIDERS: ADMIT Internal Medicine; ATTEND Internal Medicine
PROC: 06L38ZZ Occlusion of Esophageal Vein, Via Natural or Artificial Opening Endoscopic (ICD-10-PCS; principal; 2019-01-25 15:30)
PROC: 0DB58ZX Excision of Esophagus, Via Natural or Artificial Opening Endoscopic, Diagnostic (ICD-10-PCS; 2019-01-25 15:30)
DX: K22.6 Gastro-esophageal laceration-hemorrhage syndrome (principal); K92.0 Hematemesis; R10.84 Generalized abdominal pain; E11.9 Type 2 diabetes mellitus without complications; E78.5 Hyperlipidemia, unspecified; K92.1 Melena; G25.81 Restless legs syndrome; R10.13 Epigastric pain; Z95.5 Presence of coronary angioplasty implant and graft; R07.9 Chest pain, unspecified; I10 Essential (primary) hypertension; R94.31 Abnormal electrocardiogram [ECG] [EKG]; R13.10 Dysphagia, unspecified; E83.42 Hypomagnesemia
CPT/HCPCS: 36415; 71045; 80048; 80053; 80061; 82962; 83036; 83735; 84100; 84443; 84484; 85025; 85610; 85730; 86850; 86900; 86901; 88305; 88313; 93005; 93306; C9113; J1815; J2405; J3010; J3475; J7030; J7042